=== PATIENT | female | born 1950 | race Caucasian/White ===

== ENCOUNTER 2019-02-20 00:25 | Emergency (ER) | payer MEDICARE ==
[~2019-02-20] VITALS: Ht 160 cm; Wt 60.8 kg
[~2019-02-20 00:25] MED LIST: ACET-8386 PO; CARV25TA PO; ONDA-25 PO; SERT50TA PO
[2019-02-20 00:29] VITALS: BP 150/100
--- NOTE | 2019-02-20 00:30 | NUR ---
TO BED # 07 AMBULATORY
[2019-02-20 00:36] VITALS: BP 150/100
--- NOTE | 2019-02-20 00:36 | NUR ---
68 Y/O F PRESENTED TO ED WITH C/O R LEG PAIN X1 DAY. PER PT "MY SCIATTA IS FLARING UP." 8/10 PAIN, ACHING AND STIFFNESS. +CMS. C/O OF FEELING ANXIOUS. PT STATED "I WILL BE GOING TO MY [facility] TO GET THE RESULTS OF MY PANCREAS BIOPSY. THATS GIVING ME ANXIETY." BP ELEVATED AT 150/100 AND HR 92. PT NOT IN ANY APPARENT DISTRESS AT THIS TIME. ERMD NOTIFIED. WILL CONTINUE TO MONITOR.
[2019-02-20] MEDS ORDERED: fentaNYL 0.05 MG/ML VIAL IM ONE (00:45)
--- NOTE | 2019-02-20 01:17 | NUR ---
Patient discharged with v/s stable. Written and verbal after care instructions given and explained. Patient alert, oriented and verbalized understanding of instructions. Ambulatory with steady gait. All questions addressed prior to discharge. ID band removed. Patient advised to follow up with PMD. Rx of robaxin given. Patient educated on indication of medication including possible reaction and side effects. Opportunity to ask questions provided and answered. Pt will be utilizing taxi service to get home.
== END 2019-02-20 01:17 | disposition home or self-care (01) ==
LOC: MED 00:25
DX: G89.29 Other chronic pain (principal); M54.5 Low back pain; I10 Essential (primary) hypertension; Z86.79 Personal history of other diseases of the circulatory system; Z88.8 Allergy status to other drugs, medicaments and biological substances; Z79.899 Other long term (current) drug therapy; Z79.891 Long term (current) use of opiate analgesic; Z88.5 Allergy status to narcotic agent; Z88.6 Allergy status to analgesic agent
CPT/HCPCS: 96372; 99283; J3010

== ENCOUNTER 2019-04-10 19:20 | Emergency (ER) | payer MEDICARE ==
[~2019-04-10] VITALS: Ht 160 cm; Wt 61.7 kg
[2019-04-10 19:25] VITALS: BP 150/61
[2019-04-10 20:17] LABS: BASOPHILS # (AUTO) 0.1 K/uL (0.00-0.22); BASOPHILS % (AUTO) 0.9 % (0.0-2.0); EOSINOPHILS % (AUTO) 0.4 % (0.0-4.0); HEMATOCRIT 32.8 % (36-48); HEMOGLOBIN 10.9 g/dL (12.0-16.0); LYMPHOCYTES # (AUTO) 2.4 K/uL (2.5-16.5); LYMPHOCYTES % (AUTO) 25.5 % (20.5-51.1); MEAN CORPUSCULAR HEMOGLOBIN 28 pg (27-31); MEAN CORPUSCULAR HGB CONC 33 g/dL (33-37); MEAN CORPUSCULAR VOLUME 85.3 fL (80-94); MONOCYTES # (AUTO) 0.5 K/uL (0.8-1.0); MONOCYTES % (AUTO) 5.8 % (1.7-9.3); NEUTROPHILS # (AUTO) 6.2 K/uL (1.8-7.7); NEUTROPHILS % (AUTO) 67.4 % (42.2-75.2); PLATELET COUNT (AUTO) 275 K/uL (140-450); RED BLOOD CELL COUNT(AUTO) 3.85 MIL/uL (4.20-5.40); RED CELL DISTRIBUTION WIDTH 17.6 % (11.6-13.7); WHITE BLOOD COUNT (AUTO) 9.2 K/uL (4.8-10.8)
[2019-04-10] MEDS ORDERED: NACL 0.9% 500 ML IV ONE (20:25)
[2019-04-10] MEDS ORDERED: MORPHINE SULFATE 2 MG/ML SYR IVP ONE (20:25)
[2019-04-10 20:43] LABS: CARBON DIOXIDE 27.9 mmol/L (21-32); CREATININE 0.6 mg/dL (0.6-1.3); POTASSIUM 3.9 mmol/L (3.5-5.1)
[2019-04-10 20:47] LABS: ALBUMIN 3.4 g/dL (3.4-5.0); TOTAL BILIRUBIN 0.4 mg/dL (0.0-1.0)
[2019-04-10] MEDS ORDERED: MORPHINE SULFATE 2 MG/ML SYR IM ONE (21:05)
[2019-04-10 21:33] VITALS: BP 164/84
== END 2019-04-10 21:32 | disposition home or self-care (01) ==
LOC: MED 19:20
DX: R07.89 Other chest pain (principal); M54.41 Lumbago with sciatica, right side; I48.91 Unspecified atrial fibrillation; I10 Essential (primary) hypertension; Z79.891 Long term (current) use of opiate analgesic; Z79.899 Other long term (current) drug therapy; Z88.8 Allergy status to other drugs, medicaments and biological substances; Z88.5 Allergy status to narcotic agent; Z88.6 Allergy status to analgesic agent
CPT/HCPCS: 36415; 71045; 80053; 84484; 85025; 93005; 96372; 99284; J2270

== ENCOUNTER 2019-07-21 00:23 | Emergency (ER) | payer MEDICARE ==
[~2019-07-21] VITALS: Ht 160 cm; Wt 61.7 kg
[2019-07-21 00:35] VITALS: BP 132/70
--- NOTE | 2019-07-21 00:41 | NUR ---
Wheel chair assisted to bed 3.
[2019-07-21] MEDS ORDERED: fentaNYL 0.05 MG/ML VIAL IM ONE ×2 (01:05→02:35)
--- NOTE | 2019-07-21 01:26 | NUR ---
ORDER FOR FENTANYL 0.075MG/1.5ML GIVEN; 0.5ML WASTED WITH ANGIE BUSTOS. Addendum: 07/21/19 at 0408 by RHINA FOR PAIN OF 05/17.
--- NOTE | 2019-07-21 02:41 | NUR ---
ORDER FOR FENTANYL 0.05MG/1ML GIVEN; WASTED 1ML WITH ANGIE BUSTOS. Addendum: 07/21/19 at 0408 by RHINA FOR PAIN OF 03/17
[2019-07-21 02:58] VITALS: BP 128/68
--- NOTE | 2019-07-21 02:58 | NUR ---
Patient discharged with v/s stable. Written and verbal after care instructions given and explained. Patient verbalized understanding. pt. wheelchaired to her ride. All questions addressed prior to discharge. Advised to follow up with PMD.
== END 2019-07-21 02:58 | disposition home or self-care (01) ==
LOC: MED 00:23
DX: M54.41 Lumbago with sciatica, right side (principal); I48.91 Unspecified atrial fibrillation; I10 Essential (primary) hypertension; Z79.891 Long term (current) use of opiate analgesic; Z79.899 Other long term (current) drug therapy; Z88.8 Allergy status to other drugs, medicaments and biological substances; Z88.5 Allergy status to narcotic agent; Z88.6 Allergy status to analgesic agent
CPT/HCPCS: 96372; 99283; J3010

== ENCOUNTER 2019-08-01 21:21 | Emergency (ER) | payer MEDICARE ==
[~2019-08-01] VITALS: Ht 160 cm; Wt 61.7 kg
[2019-08-01 21:21] VITALS: BP 123/78
--- NOTE | 2019-08-01 21:31 | NUR ---
BIBA (BLS) TO ER BED 5
[2019-08-01] MEDS ORDERED: fentaNYL 0.05 MG/ML VIAL IM ONE (21:45)
--- NOTE | 2019-08-01 21:45 | NUR ---
68 Y/O FEMALE BIBA FROM HOME. PRESENTS TO ED, C/O LOWER BACK PAIN 05/17. PT HAS HX OF SCIATICA, TAKES NORCO. PAIN RADIATES TO RIGHT LEG. ABLE TO AMBULATE WITH SLOW STEADY GAIT BUT WITH PAIN. PT VSS. ERMD AWARE. WILL CONTINUE TO MONITOR.
[2019-08-01] MEDS ORDERED: oxyCODONE/APAP 5/325 MG 1 TAB TAB PO ONE (23:25)
[2019-08-01] MEDS ORDERED: CEPHALEXIN 500 MG CAP PO ONE (23:30)
[2019-08-02 00:16] VITALS: BP 121/77
--- NOTE | 2019-08-02 00:16 | NUR ---
PT DISCHARGED WITH PAPERWORK. EDUCATED PT REGARDING MEDICATIONS AND D/C DIAGNOSIS. IA VERBALIZED UNDERSTANDING. TOLD PT TO FOLLOW UP WITH PCP AND WHEN TO RETURN TO ED. PT STABLE CONDITION. ALL QUESTIONS ANSWERED.
--- NOTE | 2019-08-04 15:48 | NUR ---
URINE CULTURE RESULTS RECEIVED, SHOWN TO DR. LI. NO NEW PRESCRIPTIONS NEEDED FOR PATIENT. PT RECEIVED APPROPRIATE TREATMENT.
== END 2019-08-02 00:16 | disposition home or self-care (01) ==
LOC: MED 21:21
DX: M54.41 Lumbago with sciatica, right side (principal); N39.0 Urinary tract infection, site not specified; Z86.79 Personal history of other diseases of the circulatory system
CPT/HCPCS: 81002; 87086; 87186; 96372; 99283; J3010

== ENCOUNTER 2020-04-05 05:25 | Emergency (ER) | payer MEDICARE ==
[~2020-04-05] VITALS: Ht 160 cm; Wt 65.8 kg
[~2020-04-05 05:25] MED LIST changes: +DILT-135; +METO25TA PO; +VENL150C1 PO
--- NOTE | 2020-04-05 05:30 | NUR ---
biba to bed 11
[2020-04-05 05:34] VITALS: BP 196/91
--- NOTE | 2020-04-05 05:36 | NUR ---
69 year old female presents to ED with c/o umbilical pain x 2 days. states having n/v/d x 1 day. states taking norco x 4 hours with no pain relief. pt a/o x 4. denies headache/blurry vision. denies sob/cough. respiratory WNL. abdomen soft and nontender. bowel sounds normoactive on all quadrants. denies any other s/sx. denies injury or trauma. bp 196/91 at triage. awaiting MSE. connected to cardiac and pulse oximetry monitoring. safety precautions in place with bed lowest and locked, rails x 2. comfort measure in place with HOB elevated. pmhx: diverticulitis, htn, hld, a.fib, sciatica allx: compazine, reglan, phenergan
[2020-04-05] MEDS ORDERED: diphenhydrAMINE 50 MG/ML VIAL IVP ONE ×2 (06:00→07:30)
[2020-04-05] MEDS ORDERED: MORPHINE SULFATE 10 MG/ML VIAL IVP ONE (06:00)
--- NOTE | 2020-04-05 06:25 | NUR ---
labs and urine collected and sent to lab.
--- NOTE | 2020-04-05 06:30 | NUR ---
Dr. Alaniz at bedside evaluating pt.
[2020-04-05 06:51] LABS: BASOPHILS # (AUTO) 0.1 K/uL (0.00-0.22); BASOPHILS % (AUTO) 1.1 % (0.0-2.0); EOSINOPHILS % (AUTO) 0.3 % (0.0-4.0); HEMATOCRIT 35.9 % (36-48); HEMOGLOBIN 11.6 g/dL (12.0-16.0); LYMPHOCYTES # (AUTO) 2.1 K/uL (2.5-16.5); MEAN CORPUSCULAR HEMOGLOBIN 27 pg (27-31); MEAN CORPUSCULAR HGB CONC 32 g/dL (33-37); MEAN CORPUSCULAR VOLUME 84.7 fL (80-94); MONOCYTES # (AUTO) 0.4 K/uL (0.8-1.0); MONOCYTES % (AUTO) 3.5 % (1.7-9.3); NEUTROPHILS # (AUTO) 7.7 K/uL (1.8-7.7); NEUTROPHILS % (AUTO) 75.1 % (42.2-75.2); PLATELET COUNT (AUTO) 312 K/uL (140-450); RED BLOOD CELL COUNT(AUTO) 4.23 MIL/uL (4.20-5.40); WHITE BLOOD COUNT (AUTO) 10.3 K/uL (4.8-10.8)
[2020-04-05 06:54] LABS: APPEARANCE,URINE CLEAR (CLEAR); BILIRUBIN,URINE NEGATIVE (NEGATIVE); BLOOD, URINE NEGATIVE (NEGATIVE); COLOR,URINE YELLOW (YELLOW); LEUKOCYTE ESTERASE ,URINE 1+ (NEGATIVE); NITRITE, URINE NEGATIVE (NEGATIVE); UGLUCOSE NEGATIVE (NEGATIVE)
[2020-04-05 07:08] LABS: ALBUMIN 3.4 g/dL (3.4-5.0); ANION GAP 11.1 (8-16); CARBON DIOXIDE 29.6 mmol/L (21-32); CREATININE 0.6 mg/dL (0.6-1.3); POTASSIUM 3.7 mmol/L (3.5-5.1); TOTAL BILIRUBIN 0.6 mg/dL (0.0-1.0)
[2020-04-05 07:12] LABS: RBC,URINE NONE SEEN /HPF (0-5)
--- NOTE | 2020-04-05 07:15 | NUR ---
REPORT RECEIVED FROM ANGIE NUNEZ.
[2020-04-05] MEDS ORDERED: MORPHINE SULFATE 4 MG/ML SYR IVP ONE (07:30)
[2020-04-05] MEDS ORDERED: MORPHINE SULFATE 4 MG/ML SYR ONE (07:31)
[2020-04-05 08:20] VITALS: BP 171/82
--- NOTE | 2020-04-05 08:20 | NUR ---
Patient discharged with v/s stable. Written and verbal after care instructions given and explained. Patient verbalized understanding. Ambulatory with steady gait. All questions addressed prior to discharge. Advised to follow up with PMD. Transportation is arranged for pt.
== END 2020-04-05 08:20 | disposition home or self-care (01) ==
LOC: MED 05:25
DX: R10.9 Unspecified abdominal pain (principal); Z79.899 Other long term (current) drug therapy; Z88.5 Allergy status to narcotic agent; Z88.8 Allergy status to other drugs, medicaments and biological substances
CPT/HCPCS: 36415; 80053; 81001; 83690; 85025; 87086; 96374; 96375; 96376; 99284; J1200; J2270

== ENCOUNTER 2020-06-10 21:16 | Emergency (ER) | payer MEDICARE ==
[~2020-06-10] VITALS: Ht 160 cm; Wt 66.2 kg
[~2020-06-10 21:16] MED LIST changes: +CIPR250T6 PO
[2020-06-10 21:36] VITALS: BP 160/103
--- NOTE | 2020-06-10 21:39 | NUR ---
To ED bed 10
--- NOTE | 2020-06-10 21:50 | NUR ---
69 Y/O FEMALE PRESENTED TO THE ED C/O 03/17 CONSTANT THROBBING PAIN IN HER LEFT ANKLE. PT STATED THAT SHE BROKE HER LEFT ANKLE 7 WKS AGO. PT ADMITS TO TAKING NORCO AT 8 PM TODAY WITH NO RELIEF. PT STATED THAT THE PAIN FROM HER ANKLE IS CONTRIBUTING TO HER ANXIETY. NO VISIBLE SWELLING OR REDNESS NOTED, TENDER TO PALPATION NOTED. CMS INTACT IN DISTAL EXTREMITIES. NO VISIBLE DEFORMITIES NOTED. PT SITTING COMFORTABLY IN SEMI FOWLERS POSITION. PT IS NOT IN ANY ACUTE DISTRESS AT THIS TIME. BED IS LOCKED AND IN LOWEST POSITION. PMH: A-FIB, HTN, ANXIETY MEDS: LISINOPRIL, CARDIZEM ALLERGIES: DOCUMENTED IN CHART
--- NOTE | 2020-06-10 21:57 | NUR ---
XRAY AT BEDSIDE.
--- NOTE | 2020-06-10 22:28 | NUR ---
ERMD AT BEDSIDE FOR MEDICAL EVALUATION.
[2020-06-10] MEDS ORDERED: traMADol 50 MG TAB PO ONE (22:30)
[2020-06-10] MEDS ORDERED: LORazepam 1 MG TAB PO ONE (22:30)
--- NOTE | 2020-06-10 22:31 | NUR ---
ASAF WRAP PLACED ON PT L ANKLE. +CSM
[2020-06-10 22:52] VITALS: BP 160/103
== END 2020-06-10 22:52 | disposition home or self-care (01) ==
LOC: MED 21:16
DX: M25.572 Pain in left ankle and joints of left foot (principal); F41.9 Anxiety disorder, unspecified; R03.0 Elevated blood-pressure reading, without diagnosis of hypertension; I51.89 Other ill-defined heart diseases; Z88.6 Allergy status to analgesic agent; Z88.8 Allergy status to other drugs, medicaments and biological substances; Z79.899 Other long term (current) drug therapy
CPT/HCPCS: 73610; 99283; Q0092

== ENCOUNTER 2020-07-30 17:35 | Emergency (ER) | payer MEDICARE ==
[~2020-07-30] VITALS: Ht 160 cm; Wt 59.4 kg
[2020-07-30 17:43] VITALS: BP 150/96
--- NOTE | 2020-07-30 17:46 | NUR ---
PT SENT TO [facility] AFTER EKG CLEARED BY DR. HIRSCH.
[2020-07-30 18:56] LABS: BASOPHILS # (AUTO) 0.1 K/uL (0.00-0.22); BASOPHILS % (AUTO) 1.1 % (0.0-2.0); EOSINOPHILS % (AUTO) 0.2 % (0.0-4.0); HEMATOCRIT 36.6 % (36-48); HEMOGLOBIN 11.9 g/dL (12.0-16.0); LYMPHOCYTES # (AUTO) 1.5 K/uL (2.5-16.5); LYMPHOCYTES % (AUTO) 18.3 % (20.5-51.1); MEAN CORPUSCULAR HEMOGLOBIN 26 pg (27-31); MEAN CORPUSCULAR HGB CONC 33 g/dL (33-37); MEAN CORPUSCULAR VOLUME 80.8 fL (80-94); MONOCYTES # (AUTO) 0.4 K/uL (0.8-1.0); MONOCYTES % (AUTO) 4.4 % (1.7-9.3); NEUTROPHILS # (AUTO) 6.2 K/uL (1.8-7.7); PLATELET COUNT (AUTO) 350 K/uL (140-450); RED BLOOD CELL COUNT(AUTO) 4.53 MIL/uL (4.20-5.40); RED CELL DISTRIBUTION WIDTH 22.3 % (11.6-13.7); WHITE BLOOD COUNT (AUTO) 8.1 K/uL (4.8-10.8)
[2020-07-30 19:11] LABS: ALBUMIN 3.5 g/dL (3.4-5.0); ANION GAP 16.6 (8-16); CREATININE 0.7 mg/dL (0.6-1.3); POTASSIUM 3.6 mmol/L (3.5-5.1); TOTAL BILIRUBIN 0.7 mg/dL (0.0-1.0)
--- NOTE | 2020-07-30 23:00 | NUR ---
PATIENT ELOPED FROM FACILITY. DISCHARGE INSTRUCTIONS NOT GIVEN TO PATIENT. DR. ARNOLD NOTIFIED.
== END 2020-07-30 23:00 | disposition left against medical advice (07) ==
LOC: MED 17:35
DX: R07.9 Chest pain, unspecified (principal); R53.1 Weakness; R42 Dizziness and giddiness; I10 Essential (primary) hypertension; Z79.899 Other long term (current) drug therapy; Z88.5 Allergy status to narcotic agent; Z88.8 Allergy status to other drugs, medicaments and biological substances
CPT/HCPCS: 36415; 71045; 80053; 83880; 84484; 85025; 85379; 93005; 99285